=== PATIENT | male | born 2000 | race Hispanic/Latino ===

== ENCOUNTER 2022-03-16 16:18 | Emergency (ER) | payer OTHER ==
[~2022-03-16] VITALS: Ht 165.1 cm; Wt 75.0 kg
[2022-03-16 16:25] VITALS: BP 136/96
[2022-03-16 16:31] VITALS: BP 129/82
[2022-03-16 16:46] VITALS: BP 127/65
[2022-03-16] MEDS ORDERED: CEPHALEXIN500 MG PO (17:07)
[2022-03-16 17:21] VITALS: BP 120/80
== END 2022-03-16 17:47 | disposition home or self-care (01) | DRG 605 ==
LOC: ED 16:18
DX: S61.211A Laceration without foreign body of left index finger without damage to nail, initial encounter (principal); W26.8XXA Contact with other sharp object(s), not elsewhere classified, initial encounter

== ENCOUNTER 2022-03-23 13:24 | Emergency (ER) | payer OTHER ==
[~2022-03-23] VITALS: Ht 165.1 cm; Wt 104.3 kg
[~2022-03-23 13:24] MED LIST: CEPHALEXIN500 MG PO
[2022-03-23 14:45] VITALS: BP 135/81
[2022-03-23 15:01] VITALS: BP 121/66
[2022-03-23 15:23] VITALS: BP 123/77
[2022-03-23 15:26] VITALS: BP 123/77
== END 2022-03-23 15:26 | disposition home or self-care (01) | DRG 951 ==
LOC: ED 13:24
DX: Z48.00 Encounter for change or removal of nonsurgical wound dressing (principal)

== ENCOUNTER 2022-03-27 11:21 | Emergency (ER) | payer OTHER ==
[~2022-03-27] VITALS: Ht 165.1 cm; Wt 81.8 kg
[2022-03-27 13:01] VITALS: BP 117/77
== END 2022-03-27 13:06 | disposition home or self-care (01) | DRG 951 ==
LOC: ED 11:21
DX: Z48.02 Encounter for removal of sutures (principal)